=== PATIENT | female | born 1990 | race Caucasian/White ===

== ENCOUNTER 2018-06-04 19:39 | Emergency (ER) | payer BC, OTHER ==
[~2018-06-04] VITALS: Ht 180.3 cm; Wt 77.1 kg
[2018-06-04] MEDS ORDERED: IBUPROFEN 600 MG TABLET PO ONE ×2 (20:30→20:43)
[2018-06-04] MEDS ORDERED: TDAP [DIPH/PERTUSSIS/TET] 0.5 ML VIAL IM ONE ×2 (20:30→20:43)
--- NOTE | 2018-06-04 20:56 | NUR ---
ASSUMED CARE OF PT FOR DISCHARGE PURPOSES ONLY. PT REC'D WOUND CARE TO THE LEFT ELBOW. Patient discharged to home in stable condition. Written and verbal after care instructions given. Patient verbalizes understanding of instruction AND RX. PT REC'D A COPY OF ALL IMAGING FINDINGS. PT AMBULATED OUT WITH A STEADY GAIT.
[2018-06-04 20:57] VITALS: BP 123/87
== END 2018-06-04 20:57 | disposition home or self-care (01) ==
LOC: ER 19:43
DX: S80.02XA Contusion of left knee, initial encounter (principal); S80.12XA Contusion of left lower leg, initial encounter; S50.312A Abrasion of left elbow, initial encounter; Z23 Encounter for immunization; Z98.890 Other specified postprocedural states; V03.19XA Pedestrian with other conveyance injured in collision with car, pick-up truck or van in traffic accident, initial encounter; Y93.89 Activity, other specified; Y92.410 Unspecified street and highway as the place of occurrence of the external cause; Y99.8 Other external cause status
CPT/HCPCS: 73080; 73564; 73590; 90471; 90715; 99284; A4606; A6402; Z7610

== ENCOUNTER 2021-02-20 00:14 | Emergency (ER) | payer BC ==
[~2021-02-20] VITALS: Ht 180.3 cm; Wt 81.6 kg
--- NOTE | 2021-02-20 00:34 | NUR ---
PATIENT CAME TO ER BED 11 C/O LEFT LOWER QUADRANT ABDOMINAL PAIN SINCE FEW HOURS AGO. PT STATES THAT SHE HAD A FEW GLASS OF WINE. PATIENT STATES THAT SHE HAD TAKEN MIRALAX EARLIER PRIOR TO ARRIVAL HOPING THAT IT WAS GAS. PATIENT'S LAST BM WAS THIS MORNING. PATIENT IS AAOX4. NO SOB. BREATHING EVENLY AND UNLABORED ON ROOM AIR. CONNECTED TO THE MONITOR.
[2021-02-20] MEDS ORDERED: ONDANSETRON HCL/PF 4 MG/2 ML VIAL ONE (00:49)
[2021-02-20] MEDS ORDERED: MORPHINE SULFATE INJ 2 MG/ML DISP.SYRIN ONE (00:49)
--- NOTE | 2021-02-20 00:56 | NUR ---
BLOOD COLLECTED AND SENT TO THE LAB.
[2021-02-20] MEDS ORDERED: ONDANSETRON HCL/PF 4 MG/2 ML VIAL IVP ONE (01:00)
[2021-02-20] MEDS ORDERED: IV NS 0.9% 500 ML BAG IV ONE (01:00)
[2021-02-20] MEDS ORDERED: MORPHINE SULFATE INJ 2 MG/ML DISP.SYRIN IV ONE (01:00)
[2021-02-20 01:09] LABS: BASOPHILS # (AUTO) 0.3 /CMM (0.0-0.2); BASOPHILS % (AUTO) 4.7 % (0.0-2.0); EOSINOPHILS % (AUTO) 3.1 % (0.0-6.0); HEMATOCRIT 43 % (33-45); HEMOGLOBIN 14.3 g/dL (11.5-14.8); LYMPHOCYTES # (AUTO) 1.1 /CMM (0.8-4.8); LYMPHOCYTES % (AUTO) 17.7 % (20.0-44.0); MEAN CORPUSCULAR HGB CONC 34 g/dl (31.0-36.0); MEAN CORPUSCULAR VOLUME 92 fL (82-100); MONOCYTES # (AUTO) 0.6 /CMM (0.1-1.30); MONOCYTES % (AUTO) 9.9 % (2.0-12.0); NEUTROPHILS % (AUTO) 64.6 % (43.0-81.0); PLATELET COUNT (AUTO) 287 /CMM (150-450); RED BLOOD CELL COUNT(AUTO) 4.61 MIL/uL (4.0-5.2); WHITE BLOOD COUNT (AUTO) 6.2 K/uL (4.3-11.0)
[2021-02-20 01:12] LABS: CALCIUM, SERUM 8.4 mg/dL (8.5-10.1); CREATININE 0.8 mg/dL (0.6-1.3); POTASSIUM 3.6 mmol/L (3.5-5.1)
[2021-02-20 01:18] LABS: ALBUMIN 4.1 g/dL (3.4-5.0); BILIRUBIN,DIRECT 0.1 mg/dL (0.0-0.2); BILIRUBIN,TOTAL 0.2 mg/dL (0.2-1.0)
[2021-02-20 01:21] LABS: BILIRUBIN,URINE NEGATIVE (NEGATIVE); COLOR,URINE YELLOW (YELLOW); LEUKOCYTE ESTERASE ,URINE NEGATIVE (NEGATIVE); NITRITE, URINE NEGATIVE (NEGATIVE); PH,URINE 6.5 (5.0-8.0); PROTEIN,URINE NEGATIVE (NEGATIVE); UGLUCOSE NEGATIVE (NEGATIVE); UROBILINOGEN,URINE 0.2 EU/dL (0.2)
--- NOTE | 2021-02-20 01:29 | NUR ---
per lab, test is negative.
[2021-02-20 01:37] LABS: BACTERIA,URINE 2+ /HPF (None Seen); MUCUS,URINE Few /LPF (None Seen); SQUAMOUS EPITHELIAL CELL,UR Few /HPF (None Seen); URINE AMORPHOUS URATE Few /HPF (None Seen); WBC,URINE 81-100 /HPF (0-3)
--- NOTE | 2021-02-20 02:04 | NUR ---
returned from ct.
[2021-02-20] MEDS ORDERED: LIDOCAINE VISCOUS 2% UD 15 ML UDC ONE (02:15)
[2021-02-20] MEDS ORDERED: MAG HYDROX/AL HYDROX/SIMETH 30 ML UDC ONE (02:16)
[2021-02-20] MEDS ORDERED: MAG HYDROX/AL HYDROX/SIMETH 30 ML UDC PO ONE (02:30)
[2021-02-20] MEDS ORDERED: LIDOCAINE VISCOUS 2% UD 15 ML UDC MM ONE (02:30)
[2021-02-20] MEDS ORDERED: PANT40TA2 PO (02:46)
[2021-02-20] MEDS ORDERED: NITR100C6 PO (02:46)
[2021-02-20 03:51] VITALS: BP 122/76
== END 2021-02-20 01:51 | disposition home or self-care (01) ==
LOC: ER 00:17
DX: K29.70 Gastritis, unspecified, without bleeding (principal); N39.0 Urinary tract infection, site not specified; Z98.890 Other specified postprocedural states; Z79.899 Other long term (current) drug therapy
CPT/HCPCS: 36415; 74176; 80048; 80076; 81001; 83690; 84703; 85025; 87086; 96374; 96375; 99284; J2270; J2405; J7040; 87186-TC